=== PATIENT | female | born 1960 ===

== ENCOUNTER 2020-11-23 10:30 | Inpatient (IN) | payer OTHER ==
[~2020-11-23] VITALS: Ht 152.4 cm; Wt 55.8 kg
[2020-11-23] MEDS ORDERED: METFORMIN HCL500 M3 PO (14:42)
[2020-11-23] MEDS ORDERED: LOSARTAN-HCTZ1 EAC2 PO (14:42)
[2020-11-23] MEDS ORDERED: GLIMEPIRIDE4 M1 PO (14:42)
[2020-11-30] MEDS ORDERED: AMLODIPINE BESYL5 MG (09:35)
[2020-12-03] MEDS ORDERED: HYOSCYAMINE0.125 M1 SL (12:52)
[2020-12-03] MEDS ORDERED: DICLOFENAC SODI75 MG PO (12:52)
[2020-12-03] MEDS ORDERED: PEPCID AC20 MG PO (12:53)
[2020-12-03] MEDS ORDERED: INTESTINEX680 M1 PO (12:53)
== END 2020-12-03 15:36 | disposition home or self-care (01) | DRG 331 ==
LOC: O/R 11-30 07:00 → SURH 11-30 07:00
PROVIDERS: ADMIT Surgery; ATTEND Surgery
PROC: 07BC4ZX Excision of Pelvis Lymphatic, Percutaneous Endoscopic Approach, Diagnostic (ICD-10-PCS; 2020-11-30)
PROC: 0DTF4ZZ Resection of Right Large Intestine, Percutaneous Endoscopic Approach (ICD-10-PCS; principal; 2020-11-30 10:15)
DX: D12.2 Benign neoplasm of ascending colon (principal); I10 Essential (primary) hypertension; E11.9 Type 2 diabetes mellitus without complications; D64.9 Anemia, unspecified